=== PATIENT | male | born 2005 | race Caucasian/White ===

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

== ENCOUNTER 2024-01-25 21:10 | Emergency (ER) | payer BC, SELFPAY ==
--- NOTE | ~2024-01-25 | CT_ITS ---
CT of the Abdomen and Pelvis: Indication: Periumbilical pain Technique: 2.5 mm axial scans were obtained through the abdomen and pelvis following intravenous adm inistration of 100 cc of Omnipaque 350. Dose reduction technique was used on this scan by utilizing a utomated exposure control and iterative reconstruction technique. The dose-length product (DLP) was 1 743.24 mGy-cm. COMPARISON: 02/25/2023 Findings: Scans through the lung bases are unremarkable. The liver, spleen, pancreas, gallbladder, adrenals and kidneys are within normal limits. No evidence of aortic aneurysm. No lymphadenopathy. No bowel obstruction or bowel wall thickening. There is no evidence to suggest acute appendicitis. A small fat-containing umbilical hernia noted. Images through the pelvis were performed. Urinary bladder unremarkable. No pelvic mass seen. No ascit es. Impression: Small fat-containing umbilical hernia. Reviewed, dictated and finalized at [facility]. Impression: Small fat-containing umbilical hernia.
[2024-01-25 21:33] VITALS: BP 138/74; PULSE 72; RESP 16; TEMP 36.8; O2SAT 100
--- NOTE | 2024-01-25 22:33 | ED.WOUNDLAC ---
HPI - Wound/Laceration General Chief Complaint: Wound/Laceration Stated Complaint: abd wound Time Seen by Provider: 01/25/24 22:10 Source: patient Mode of arrival: ambulatory Limitations: no limitations History of Present Illness HPI narrative: This is a 18 year old male that presents to the ER for periumbilical pain. Report she was lifting at work tonight and noted pain in his belly button. Reports abnormal drainage and bleeding from the area since. Denies fevers or vomiting. Related Data Allergies Allergy/AdvReac Type Severity Reaction Status Date / Time No Known Allergies Allergy Verified 02/25/23 12:24 Review of Systems Review of Systems: CONSTITUTIONAL: Denies fever GASTROINTESTINAL: Reports abdominal pain. Denies nausea, vomiting, or diarrhea. All systems reviewed & are unremarkable except as noted in HPI and below PMFSH Past Medical History Medical History (Updated 01/26/24 @ 01:57 by Lucero Brand PA-C) History of asthma Social History Social History (Updated 01/25/24 @ 22:43 by Lucero Brand PA-C) Smoking status: Never smoker Exam Narrative: GENERAL: Well-appearing, well-nourished, and in no acute distress. HEAD: Normocephalic, atraumatic. EYES: EOMI. CHEST: Clear to auscultation. No respiratory distress. No wheezes rales or rhonchi HEART: Regular rate and rhythm. No murmur heard. Normal peripheral pulses. ABDOMEN: Soft, nontender, nondistended, normal active bowel sounds. Umbilicus with foul smelling drainage with mild bleeding EXTREMITIES: Normal range of motion. No edema. SKIN: Warm, dry, no rash. NEURO: No focal deficits. Alert and oriented x3. PSYCH: Normal mood and affect Course Course Emergency Course: Patient updated on his workup and agrees with plan of care Vital Signs Vital signs: Vital Signs Temperature 98.2 F 01/25/24 21:33 Pulse Rate 72 01/25/24 21:33 Respiratory Rate 16 01/25/24 21:33 Blood Pressure 138/74 01/25/24 21:33 Pulse Oximetry 100 01/25/24 21:33 Oxygen Delivery Room Air 01/25/24 21:33 Temperature 98.2 F 01/25/24 21:33 Pulse Rate 98 01/26/24 01:26 Respiratory Rate 16 01/25/24 21:33 Blood Pressure 149/82 H 01/26/24 01:26 Pulse Oximetry 100 01/26/24 01:26 Oxygen Delivery Room Air 01/25/24 21:33 MDM - Wound/Laceration MDM Narrative Medical decision making narrative: Patient presents to the ER for abnormal umbilical drainage. Patient is afebrile and nontoxic appearing. His vitals are stable. CBC and metabolic panel without concerning findings. Patient was noted to have redness and abnormal drainage from his umbilicus. No fluid collection noted on CT scan. Patient will be started on oral antibiotics for cellulitis. He is to follow up with primary provider. He was given warnings to return to the ER Differential Diagnosis Differential diagnosis: Likely abscess and other (cellulitis) Lab Data Attestation: I reviewed the patient's lab results. 01/25/24 23:21 01/25/24 23:21 Labs: Lab Results 01/25/24 Range/Units 23:21 WBC 9.1 (4.5-10.0) K/mm3 RBC 5.40 (4.6-6.20) M/mm3 Hgb 15.1 (14.0-18.0) g/dL Hct 44.4 (42.0-52.0) % MCV 82.2 (80-100) fl MCH 28.0 (26-34) pg MCHC 34.0 (32-36) g/dl RDW 12.8 (11.5-14.5) % Plt Count 295 (150-375) k/mm3 MPV 10.4 (7.4-10.4) fl Immature Gran % (Auto) 0.1 (0-0.5) % Neut % (Auto) 67.0 (45.5-73.1) % Lymph % (Auto) 23.2 (18.3-44.2) % Power % (Auto) 8.0 (2.6-8.5) % Eos % (Auto) 1.0 (0-4.4) % Baso % (Auto) 0.7 (0.2-1.2) % Lymph # (Auto) 2.11 (0.9-3.2) K/mm3 Power # (Auto) 0.7 H (0.1-0.6) K/mm3 Eos # (Auto) 0.1 (0-0.3) K/mm3 Baso # (Auto) 0.1 (0.0-0.1) K/mm3 Abs Immat Gran (auto) 0.01 (0.00-0.031) K/mm3 Absolute Neuts (auto) 6.1 (1.3-6.7) K/mm3 Absolute Nucleated RBC 0.000 (0.0-0.012) K/mm3 Nucleated RBC % 0.0 (0.0-0.2) % Sodium 142 (134-143) mmol/L Potassium 4.1 (3.
[2024-01-25 23:27] LABS: Basophils Absolute Auto 0.1 K/mm3 (0.0-0.1); Basophils Percent Auto 0.7 % (0.2-1.2); Eosinophils Absolute Auto 0.1 K/mm3 (0-0.3); Hematocrit 44.4 % (42.0-52.0); Hemoglobin 15.1 g/dL (14.0-18.0); Immature Granulocyte Absolute 0.01 K/mm3 (0.00-0.031); Immature Granulocyte Percent A 0.1 % (0-0.5); Lymphocytes Absolute Auto 2.11 K/mm3 (0.9-3.2); Lymphocytes Percent Auto 23.2 % (18.3-44.2); Mean Corpuscular Volume 82.2 fl (80-100); Mean Platelet Volume 10.4 fl (7.4-10.4); Monocytes Absolute Auto 0.7 K/mm3 (0.1-0.6); Neutrophils Absolute Auto 6.1 K/mm3 (1.3-6.7); Platelet Count Result 295 k/mm3 (150-375); Red Cell Distribution Width 12.8 % (11.5-14.5); White Blood Count 9.1 K/mm3 (4.5-10.0)
[2024-01-25 23:39] LABS: Alanine Aminotransferase 27 U/L (6-50); Albumin Level 4.8 g/dL (3.7-5.6); Alkaline Phosphatase 75 U/L (58-237); Anion Gap 7 mmol/L (4-12); Aspartate Amino Transferase 21 U/L (17-59); Bilirubin,Total 0.5 mg/dL (0.2-1.3); Blood Urea Nitrogen 16 mg/dL (8-21); Calcium 9.7 mg/dL (8.9-10.7); Carbon Dioxide 28 mmol/L (22-30); Chloride 107 mmol/L (98-107); Estimated CRCL calculation 128 ml/min; Estimated Glomerular Filt Rate > 60; Glucose 94 mg/dL (65-110); Potassium 4.1 mmol/L (3.4-5.0); Sodium 142 mmol/L (134-143)
[2024-01-26 01:26] VITALS: BP 149/82; PULSE 98; O2SAT 100
== END 2024-01-26 02:20 | disposition home or self-care (01) ==
PROVIDERS: Emergency Provider Physician Assistant; PCP Pediatrics
DX: L03.316 Cellulitis of umbilicus (principal); J45.909 Unspecified asthma, uncomplicated
CPT/HCPCS: 36415; 74177; 80053; 85025; 99284; Q9967